=== PATIENT | male | born 1950 | race Caucasian/White ===

== ENCOUNTER → 2018-10-28 10:13 | Outpatient (CLI) | payer MEDICARE, BC ==
--- NOTE | ~2018-10-28 | ST ---
PATIENT:EDISON JAY MEDICAL RECORD: [id number] SEX: M LOCATION:[facility] ORDER #: ADMISSION DATE: 10/28/18 AGE OF PATIENT: 68 REFERRING PHYSICIAN: INTERPRETING PHYSICIAN: CONI DE LEON MD DATE OF SERVICE: 10/28/2018 PROCEDURE: Nuclear stress test. INDICATION: Angina, diabetes, shortness of breath, and hypertension. He was exercised on standard [place] protocol for 8 minutes achieving greater than 85% maximum target heart rate response with 27 mCi of sestamibi injected at peak stress, 9 mCi used previously for rest images. FINDINGS: Gated SPECT reveals preserved ejection fraction at 61% with decreased thickening and brightening throughout all segments. SPECT imaging Cardiolite was used as myocardial perfusion agent. There is a mixed perfusion defect inferiorly, this partially fixed partial reversible includes the basal, mid, apical, inferior segments. There is reversibility laterally, this includes the apical lateral, mid lateral, basal lateral segments. The degree of reversibility throughout both defects is moderate. The amount of myocardium involved is large. OVERALL IMPRESSION: This is a high risk abnormal nuclear stress test with mixed perfusion defect, partially fixed, partially reversible inferiorly, reversible ischemia laterally suggestive of multivessel hemodynamically significant coronary artery disease. TRANSINT:[id number] Voice Confirmation ID: [id number] DOCUMENT ID: [id number] CONI DE LEON MD CC: [id number] DICTATION DATE: 11/03/18 171 [employer]: 11/04/18 0107 DEP CLI 10/28/18 [facility] [address] [place] [address]
== END | disposition home or self-care (01) ==
LOC: D.HCCARDIO 10:13
PROVIDERS: ATTEND Internal Medicine Interventional Cardiology
DX: I20.9 Angina pectoris, unspecified (principal)

== ENCOUNTER 2018-11-19 06:12 | Outpatient (CLI) | payer MEDICARE, BC ==
[~2018-11-19] VITALS: Ht 180.3 cm; Wt 93.6 kg
--- NOTE | ~2018-11-19 | HEMODYNAMI ---
PATIENT:EDISON JAY MEDICAL RECORD: [id number] : 50 LOCATION:[facility] ADMISSION DATE: 11/19/18 Generatedon:11/19/20189:41 Patient name: EDISON JAY Patient #: [id number] SSN: : Date of study: 11/19/2018 Page: Of Hemodynamic Procedure Report Patient Data Patient Demographics Procedure consent was obtained First Name: EDISON Gender: Male Last Name: MISTY : 1950 Patient #: [id number] Age: 68 year(s) Race: Additional ID: [id number] Contact details [address]: [address] [place] [address] State: [place] City: [place] Zip code: [address] Past Medical History Allergies Allergen Reaction Date Comments Reported Other allergy 11/19/2018 GRASS POLLEN, DEMEROL, PHENERGAN Admission Admission Data Admission Date: 11/19/2018 Admission Time: 6:12 Arrival Date: 11/19/2018 Arrival Time: 0:00 Insurance Payor: Medicare Height (in.): 70.87 BSA: 2.14 (m2) Height (cm.): 180 BMI: 29.01 (kg/m2) Weight (lbs.): 207.24 Weight (kg.): 94 Lab Results Lab Result Date: 11/19/2018 Lab Result Time: 0:00 Biochemistry Name Units Result Min Max BUN mg/dl 10 --(-*--)-- 7 18 Creatinine mg/dl 1.2 --(---*)-- 0.6 1.3 eGFR ml/min 64.51407 *-(----)-- 90 120 NONAFRICAN CBC Name Units Result Min Max Hematocrit % 42.1 --(*---)-- 42 54 Hemoglobin g/dl 14.8 --(-*--)-- 13.5 17.5 Procedure Procedure Types Cath Procedure Diagnostic Procedure C [facility] w/Coronaries Procedure Description Procedure Date Procedure Date: 11/19/2018 Procedure Start Time: 9:28 Procedure End Time: 9:38 Procedure Staff Name Function Con Levine MD Performing Physician Shira Valle RT Monitor Taisha Boateng RT Scrub Masoud Malave RN Nurse Procedure Data Cath Procedure Fluoroscopy Diagnostic fluoroscopy Total fluoroscopy Time: 2.9 time: 2.9 min min Diagnostic fluoroscopy Total fluoroscopy dose: 615 dose: 615 mGy mGy Contrast Material Contrast Material Type Amount (ml) Isovue 300 64 Estimated blood loss: 10 ml Diagnostic catheters Device Type Used For End Catheter Placement DIAGNOSTIC Roddy 110cm Procedure 5Fr catheter ([id number]) Procedure Complications No complications Procedure Medications Medication Administration Route Dosage Oxygen etCO2 Nasal cannula 2 l/min 0.9% NaCl I.V. 100 ml/hr Zofran I.V. 4 mg Lidocaine 2% added to field 20 Heparin Flush Bag added to field 2 bags (1000units/500ml NS) Radial Cocktail I.A. 1 syringe (Verapamil 2mg/Nitro 400mcg/Heparin 1500units) Versed I.V. 2 mg Fentanyl I.V. 100 mcg Versed I.V. 0.5 mg Fentanyl I.V. 25 mcg Hemodynamics Rest BSA: 2.14 (m2) HGB: 14.8 (g/dl) O2 Consumption: Estimated: 235.46 (ml/min) O2 Co nsumption indexed: Estimated:110.03 (ml/min/m) Heart Rate: 54 (bpm) Pressure Samples Time Site Value (mmHg) Purpose Heart Use Rate(bpm) 9:29 LV 95/-13,-1 Snapshot 80 9:30 LV 104/-12,0 Snapshot 81 9:30 AO 83/49(66) Pullback 68 9:30 LV 103/-4,6 Pullback 68 Gradients Valve Time Site 1 Site 2 Mean SEP/DFP Peak To Heart Use (mmHg) (sec/min) Peak Rate (mmHg) (bpm) Aortic 9:30 LV AO 20 68 103/-4,6 83/49(66) Calculations Valve P-P Mean Valve Index Valve Source Name Gradient Area Flow (cm2) Aortic 20 20 Snapshots Pre Cath Intra NCS Post Cath Vital Signs Time Heart Resp SPO2 etCO2 NIBP (mmHg) Rhythm Pain Sedation Rate (ipm) (%) (mmHg) Status Level (bpm) 9:15:28 53 18 97 0 126/71(103) NSR 0 (11) 10(A) , No pain 9:19:50 60 17 94 0.7 114/69(88) NSR 0 (11) 10(A) , No pain 9:24:08 59 18 94 9.7 111/67(87) NSR 0 (11) 10(A) , No pain 9:28:30 59 14 92 47.3 103/58(80) NSR 0 (11) 9(A) , No pain 9:32:48 71 16 93 48 102/60(76) NSR 0 (11) 9(A) , No pain 9:37:05 72 19 95 50.3 117/65(81) NSR 0 (11) 10(A) , No pain Medications Time Medication Route Dose Verified Delivered Reason Notes Effectiveness by by 9:14:21 Oxygen etCO2 2 l/min Con Buffie used for Nasal Abner Malave RN procedure cannula 9:14:33 Zofran I.V. 4 mg Con Buffie Per pt gets Abner Malave RN physician nauseated with medications 9:14:33 0.9% NaCl I.V. 100 Con Buffie Per ml/hr Abner Malave RN physician 9:14:57 Lidocaine 2% added 20ml Con Con for local to vial Abner Levine MD anesthetic field 9:15:08 Heparin Flush added 2 bags Con Con used for Bag to Abner Levine MD procedure (1000units/500ml field NS) 9:23:20 Versed I.V. 2 mg Con Buffie for sedation Abner Malave RN 9:23:26 Fentanyl I.V. 100 mcg Con Buffie for sedation Abner Malave RN 9:28:09 Radial Cocktail I.A. 1 Con Buffie for (Verapamil syringe Abner Malave RN vasodilation 2mg/Nitro 400mcg/Heparin 1500units) 9:28:14 Versed I.V. 0.5 mg Con Buffie for sedation Abner Malave RN 9:28:33 Fentanyl I.V. 25 mcg Con Buffie for sedation Abner Malave RN Procedure Log Time Note 8:50:57 Informed consent obtained and on chart 8:51:29 Procedure Status Elective Heart Cath (OP). 8:51:33 Time tracking: Regular hours (M-F 7:00 - 5:00) 8:51:37 Plan of Care:Hemodynamics will remain stable., Cardiac rhythm will remain stable., Comfort level will be maintained., Respiratory function will remain adequate., Patient/ family verbilizes understanding of procedure., Procedure tolerated without complication., Recovers from procedure without complications.. 8:51:43 Masoud Malave RN sent for patient. Start room use. 9:01:21 Patient Weight : 207.24 lbs 9:01:27 Arrival Date: 11/19/2018 12:00:00 AM 9:01:36 Patient Height : 70.87 inches 9:01:42 Insurance Payor : Medicare 9:01:49 H&P Date Dictated: 11/19/2018 New H&P dictated by physician.. 9:02:47 Lab Result : BUN 10 mg/dl 9:02:47 Lab Result : eGFR NONAFRICAN 64.93437 ml/min 9:02:47 Lab Result : Creatinine 1.2 mg/dl 9:02:47 Lab Result : Hemoglobin 14.8 g/dl 9:02:47 Lab Result : Hematocrit 42.1 % 9:06:42 Patient received from Pre/Post Procedure Room to CCL 1 Alert and oriented. Tansferred to table in Supine position. 9:06:43 Warm blankets applied, and catina hugger turned on for patient comfort. 9:06:44 Correct patient and procedure confirmed by team. 9:06:44 ECG and BP/O2 sat monitors applied to patient. 9:14:11 Vital chart was started 9:14:21 Oxygen 2 l/min etCO2 Nasal cannula was administered by Masoud Malave RN; used for procedure; Verbal order read back and verified. 9:14:33 Zofran 4 mg I.V. was administered by Masoud Malave RN; Per physician; pt gets nauseated with medications Verbal order read back and verified. 9:14:33 0.9% NaCl 100 ml/hr I.V. was administered by Masoud Malave RN; Per physician; Verbal order read back and verified. 9:14:57 Lidocaine 2% 20ml vial added to field was administered by Con Levine MD; for local anesthetic; Verbal order read back and verified. 9:15:08 Heparin Flush Bag (1000units/500ml NS) 2 bags added to field was administered by Con Levine MD; used for procedure; Verbal order read back and verified. 9:15:57 Baseline sample Acquired. 9:16:02 Rhythm: sinus bradycardia 9:16:03 Full Disclosure recording started 9:16:04 Pre-procedure instructions explained to patient. 9:16:04 Pre-op teaching completed and patient verbalized understanding. 9:16:05 Family in patients room. 9:16:07 Patient NPO since Midnight. 9:16:24 Patient allergic to Other allergyGRASS POLLEN, DEMEROL, PHENERGAN 9:16:26 Is the patient allergic to Iodine/contrast media? No. 9:16:27 Is patient on blood thinner?No 9:16:38 Patient diabetic? Yes. 9:16:40 If diabetic: On Metformin? No 9:17:09 FEBUME LAST DOSE FRIDAY 9:17:24 Previous problem with sedation/anesthesia? Yes NAUSEA 9:17:27 Snore? Yes 9:17:28 Sleep apnea? Yes 9:17:29 Deviated septum? No 9:17:34 Opens mouth fully? Yes 9:17:35 Sticks out tongue? Yes 9:17:37 Airway obstruction? No ? 9:17:43 Dentures? No ? 9:17:54 Pre procedure: right dorsailis pedis pulse 1+ Palpable, but thready & weak; easily obliterated 9:17:57 Modified Marvin's test Ulnar < 7 seconds 9:17:59 Patient pain scale 0/10 ?. 9:18:03 IV patent on arrival in left hand with 0.9% NaCl at KVO. 9:18:05 Lab results completed and on chart. 9:18:08 Right Radial & Right Groin area was prepped with chlora-prep and draped in sterile fashion 9:18:09 Alarms reviewed by R. N. 9:18:10 Sharps counted by scrub and verified by R.N. 9:18:13 Use device set Radial Dx or PCI 9:18:14 ACIST Syringe (15769) opened to sterile field. 9:18:15 Bag Decanter () opened to sterile field. 9:18:16 ACIST Hand Control (67793) opened to sterile field. 9:18:16 ACIST Manifold (03348) opened to sterile field. 9:18:17 Tegaderm 4 x 4 (1626W) opened to sterile field. 9:18:19 Medline Cath Pack ([id number]) opened to sterile field. 9:18:19 MBrace Wrist Support ([id number]) opened to sterile field. 9:18:20 NEEDLE Cook 21G 4cm Radial ([id number]) opened to sterile field. 9:18:21 EMERALD Guide Wire (128-780) opened to sterile field. 9:18:22 SHEATH 6FR RAIN ([id number]) opened to sterile field. 9::29 --------ALL STOP TIME OUT------ 9::30 Final Timeout: patient, procedure, and site verified with staff and physician. All members of the team are in agreement. 9:22:31 Right Radial & Right Groin site verified by team. 9:22:34 Fire Safety Assessment: A--An alcohol-based skin anteseptic being used preoperatively., C--Open oxygen or nitrous oxide is being used., D--An ESU, laser, or fiber-optic light is being used. 9:22:36 Physical assessment completed. ASA score P 2 - A patient with mild systemic disease as per Con Levine MD. 9:22:39 2) 60-89 Mildly reduced kidney function, and other findings (as for stage 1) point to kidney disease. 9:22:42 Maximum allowable contrast dose (3.7 X eGFR X 0.75)178 ml. 9:22:46 Sedation plan: IV Moderate Sedation Medication:Versed, Fentanyl 9:23:20 Versed 2 mg I.V. was administered by Masoud Malave RN; for sedation; Verbal order read back and verified. 9:23:26 Fentanyl 100 mcg I.V. was administered by Masoud Malave RN; for sedation; Verbal order read back and verified. 9:25:57 Procedure started. 9:26:26 Zero performed for pressure channel P1 9:28:09 Radial Cocktail (Verapamil 2mg/Nitro 400mcg/Heparin 1500units) 1 syringe I.A. was administered by Masoud Malave RN; for vasodilation; Verbal order read back and verified. 9:28:14 Versed 0.5 mg I.V. was administered by Masoud Malave RN; for sedation; Verbal order read back and verified. 9:28:32 Local anesthetic to right femoral artery with Lidocaine 2% by Con Levine MD.INITIAL ACCESS ONLY 9:28:33 Fentanyl 25 mcg I.V. was administered by Masoud Malave RN; for sedation; Verbal order read back and verified. 9:28:59 A DIAGNOSTIC Roddy 110cm 5Fr catheter ([id number]) was advanced over the wire and used for Procedure. 9:29:30 LV gram done using DILL 9::32 Injector settings: Ml/sec: 5, Volume: 15, 9:30:20 EF : 60 % 9:33:30 LCA angiography performed. 9:33:35 RCA angiography performed. 9:34:46 Catheter removed. 9:34:54 ZEPHYR REGULAR TR BAND ([id number]) opened to sterile field. 9:35:14 Procedure ended.(Physican Out) 9:35:51 Fluoroscopy time 02.90 minutes. 9:35:57 Fluoroscopy dose: 615 mGy 9:35:57 Flurop Dose total: 615 9:36:04 Dose Area Product 76789 mGy/cm. 9:36:18 Contrast amount:Isovue 300 64ml. 9:36:25 Maximum allowable dose exceeded? No. 9:36:26 Sharps counted by scrub and verified by R.N. 9:36:28 [place] band inflated with 10cc of air. 9:36:33 Post-procedure physical assessment completed. ASA score P 2 - A patient with mild systemic disease as per Con Levine MD. 9:36:37 Post procedure rhythm: sinus rhythm 9:36:42 Estimated blood loss: 10 ml 9:37:04 Post procedure instruction explained to patient.Patient verbalizes understanding. 9:37:06 Patient needs reinforcement of post procedure teaching. 9:37:51 Procedure and supply charges have been captured, reviewed, submitted and are correct. 9:37:55 Procedure Complication : No complications 9:37:57 Vital chart was stopped 9:37:59 See physician's report for complete and final results. 9:38:00 Report given to Pre/Post Procedure Room. 9:38:03 Patient transfered to Pre/Post Procedure Room with Bed. 9:38:05 Procedure ended. 9:38:05 Full Disclosure recording stopped 9:38:11 End room use (Document Last) 9:40:36 End room use (Document Last) 9:41:03 End room use (Document Last) Device Usage Item Name Manufacture Quantity Catalog Hospital Part Current Minima l Lot# / Number Charge Number Stock Stock Serial# Code ACHANNAH Acist 1 36062 626835 [id number] [id number] 20 Syringe Medical (43486) Systems Inc Bag Microtek 1 2001S 431909 22727 150057 5 Decanter Medical Inc. (2001S) ACIST Hand Acist 1 03947 151760 135145 192489 5 Control Medical (38229) Systems Inc ACIST Acist 1 57756 760013 767430 201909 5 Manifold Medical (39104) Systems Inc Tegaderm 4 3M 1 1626W 116476 031625 138862 5 x 4 (1626W) Medline Medline 1 [id number] 031171 98813 027110 5 Cath Pack ([id number]) MBrace Advanced 1 140-0250-00 253600 30149 406360 5 Wrist Vascular Support Dynamics ([id number]) NEEDLE Cook Cook Medical 1 [id number] 404999 004477 722671 5 21G 4cm Radial (H52969) EMERALD Cardinal 1 502-455 418824 727196 265387 5 Guide Wire Health (502-455) SHEATH 6FR Cardinal 1 [id number] 864819 7238128 087830 5 [facility] Health (8933033) DIAGNOSTIC Terumo 1 40-5023 384230 392544 953384 5 Roddy 110cm 5Fr catheter (802105) ZEPHYR Cardinal 1 793056 705478 7047296 937711 5 REGULAR TR Health BAND (751877) Signature Audit [place] Stage Time Signature Unsigned Intra-Procedure 11/19/2018 Shira Valle 9:40:36 AM RT(R) Intra-Procedure 11/19/2018 Masoud Malave RN 9:41:03 AM Intra-Procedure 11/19/2018 Con Levine MD 9:41:24 AM [facility] [address] [place] [address]
[2018-11-19] MEDS ORDERED: LIPITOR10 MG PO (07:04)
[2018-11-19] MEDS ORDERED: TRAZODONE HCL300 MG PO (07:05)
[2018-11-19] MEDS ORDERED: NORVASC10 MG PO (07:05)
[2018-11-19] MEDS ORDERED: LISINOPRIL20 MG PO (07:05)
[2018-11-19] MEDS ORDERED: CELEXA40 MG PO (07:06)
[2018-11-19] MEDS ORDERED: JANUMET XR 50-1 EACH PO (07:06)
[2018-11-19 07:20] VITALS: BP 122/69; Ht 180.3 cm; Wt 93.6 kg
[2018-11-19 07:22] LABS: BASOPHILS 0.9 % (0-2); EOSINOPHILS 8.7 % (0-7); HEMATOCRIT 42.1 % (42.0-54.0); HEMOGLOBIN 14.8 g/dL (13.5-17.5); IMMATURE GRANULOCYTES 0.2 % (0-5); LYMPHOCYTES 23.1 % (15-50); MCH 32.7 pg (26.0-34.0); MCHC 35.2 g/dL (31.0-37.0); MCV 93.1 fL (80.0-100.0); MONOCYTES 10.1 % (2-11); PLATELET COUNT 160 10x3/uL (130-400); RBC 4.52 10x6/uL (4.20-6.10); RDW 12.8 % (11.5-14.5); WBC 6.5 10x3/uL (4.8-10.8)
[2018-11-19 07:37] LABS: ANION GAP 12.5 mmol/L (8-16); CALCIUM 9.2 mg/dL (8.5-10.1); CARBON DIOXIDE 27.6 mmol/L (21.0-32.0); CHOL - HDL RATIO 2.2 ratio (2.3-4.9); CREATININE - SERUM 1.2 mg/dL (0.6-1.3); LDL-HDL RATIO 0.6 ratio (1.5-3.5); POTASSIUM - SERUM 4.1 mmol/L (3.5-5.1)
--- NOTE | 2018-11-19 10:11 | NUR ---
PT IS ALERT, RESP WITH EASE ON ROOM AIR. NSR, RATE 64, BP IS 114/59. PT DENIES ANY C/O CHEST PAIN OR NAUSEA. REQUESTS DIET SODA AND THIS SERVED. Z BAND IS CDI, FINGERS WARM AND PULSES PALPABLE. AT BEDSIDE, CALL LIGHT IN REACH. DR YEE HAS ROUNDED.
--- NOTE | 2018-11-19 10:13 | NUR ---
Z BAND CDI, FINGERS WARM AND PULSES PALPABLE, SANDWICH SERVED. PT DENIES NEEDS AT THIS TIME. NSR, RATE 60. BP IS 113/61.
--- NOTE | 2018-11-19 10:35 | NUR ---
PT SLEEPING, AWAKENS EASILY. DENIES ANY C/O. Z BAND IS CDI, FINGERS WARM AND CAP REFILL IS BRISK. NSR, DENIES ANY C/O CHEST PAIN. AT BEDSIDE.
--- NOTE | 2018-11-19 10:47 | NUR ---
PT SLEEPING, AWAKENS EASILY. DENIES ANY C/O. Z BAND IS CDI, FINGER WARM AND CAP REFILL IS BRISK.
--- NOTE | 2018-11-19 11:10 | NUR ---
ATTEMPTED REMOVAL OF AIR FROM TR BAND WITH IMMEDIATE OOZING NOTED, AIR REINSTILLED AND OOZING CEASED. FINGERS WARM AND CAP REFILL IS BRISK. NSR, RATE 60, BP IS 103/54. PT SLEEPING AND AWAKENS EASILY.
--- NOTE | 2018-11-19 11:40 | NUR ---
PT SLEEPING INTERMITTENTLY, AWAKENS EASILY AND DENIES ANY C/O. 3 CC OF AIR WEANED FROM Z BAND WITH NO BLEEDING NOTED. FINGERS WARM AND CAP REFILL IS BRISK. PT DENIES ANY NV DEFICIT TO HAND.
--- NOTE | 2018-11-19 12:04 | NUR ---
3 CC OF AIR WEANED FROM Z BAND WITH NO BLEEDING NOTED. FINGERS WARM AND CAP REFILL IS BRISK.
--- NOTE | 2018-11-19 12:28 | NUR ---
1215 ALL REMAINING AIR WEANED FROM Z BAND WITH NO BLEEDING NOTED. FINGERS WARM AND CAP REFILL IS BRISK. PT DENIES ANY C/O. VSS. 1225 DC INSTRUCTIONS HAVE BEEN REVIEWED WITH PT AND WHO VERBALIZE UNDERSTANDING. 2X2 AND TEGADERM CDI RIGHT WRIST, WRIST IMMOBILIZER IN PLACE.
--- NOTE | 2018-11-19 12:40 | NUR ---
PT HAS AMBULTED TO THE BATHROOOM AND VOIDED QS, IS ALERT AND DENIES ANY C/O. RIGHT WRIST DRESSING CDI, WRIST IMMOBILIZER IN PLACE. FINGERS WARM AND RADIAL PULSE PALPABLE. PT DENIES ANY NV DEFICIT TO HAND. PT HAS ALL PERSONAL BELONGINGS AND DC INSTRUCTIONS. PT ESCORTED TO PRIVATE AUTO VIA WC BY NURSE WITH DRIVING HIM HOME.
== END 2018-11-19 12:40 | disposition home or self-care (01) ==
LOC: D.CATH 06:12
PROVIDERS: ATTEND Internal Medicine Cardiovascular Disease
DX: R94.30 Abnormal result of cardiovascular function study, unspecified (principal); I20.0 Unstable angina; R06.02 Shortness of breath